=== PATIENT | female | born 1940 | race Caucasian/White ===

== ENCOUNTER 2024-04-15 14:53 | Emergency (ER) | payer MEDICARE, SELFPAY ==
[2024-04-15 14:57] VITALS: BP 123/71
[2024-04-15 15:50] VITALS: BMI 30.8
--- NOTE | 2024-04-15 16:11 | ED.GENMED ---
History of Present Illness
General
Chief Complaint: Musculo-Skeletal Complaint
Source: patient and spouse
Exam Limitations: none
Time Seen by Provider: 04/15/24 15:06
Nursing documentation reviewed up to this point in time: agreed with
Travel History
Have you had any contact with someone who has COVID-19?: No
Do you have any symptoms of coronavirus? Fever > 100 degrees, chills, cough, shortness of breath, sore throat, loss of taste or smell, muscle aches, or headache?: No
History of Present Illness
History of Present Illness:
83-year-old female with a past medical history of migraines, hypertension who presents to the emergency room for evaluation of left chest wall pain. Patient reports that yesterday afternoon she was on her hands and knees cleaning underneath the bed
and was reaching out to clean the baseboard. She says that she reached out and felt an immediate pop in the left chest wall and had significant pain. She thought that it was a muscle strain and tried to manage with Tylenol at home but pain was
quite severe overnight and into this morning and so she ultimately came to the emergency room to be assessed. She denies any shortness of breath or difficulty breathing although her pain is worse with deep inspiration. She denies any other
complaints today.
Past History
Past History
ED Past Medical History: Other (migraines) and Other (Stones, chronic pain)
ED Past Surgical History: Gynecological
Social History
Tobacco: Non-smoker
Alcohol: None
Drug: None
Personal:
Living: alone
Employment: Retired
Family History
Family History: Other (Noncontributory)
Review of Systems
Review of Systems
All Other Systems: ROS reviewed and negative except as documented in HPI and ROS
Constitutional: Denies fever
Respiratory: Denies cough or trouble breathing
Cardiac: Reports chest pain (Rib/chest wall pain); Denies palpitations
ABD/GI: Denies abdominal pain, nausea or vomiting
: Denies flank pain
Musculoskeletal: Denies neck pain or back pain
Neurological: Denies headache
Phy Exam
Physical Exam
Physical Exam:
General: Awake, alert, oriented x3; appears uncomfortable
Head: Normocephalic, atraumatic
Eyes: Conjunctiva normal
Throat: Airway intact, handling secretions
Neck: Trachea midline
Lungs: Clear to auscultation bilaterally, no wheezing, rales, rhonchi
Heart: Regular rate and rhythm, no murmurs, gallops, or rubs
Chest: Patient has no ecchymosis or crepitus on chest wall palpation; she has significant point tenderness left mid axillary line ribs 6 through 8
Back: No tenderness in the scapula or the thoracic or lumbar spine or in the posterior ribs
Abd: Soft, non distended, nontender to deep palpation
Neuro: No gross deficits
Skin: no rash
Extremities: Warm and well-perfused
Scores
Heart Failure Risk
Heart Failure Risk Score: Not Applicable
Heart Score for Chest Pain Patients
STEMI patient?: Not applicable
Withdrawal Assessment of Alcohol
Withdrawal Assessment Completed?: Not applicable
Course
Orders/Labs/Results
Orders:
Orders
04/15/24 16:06
CT Chest W/o Iv Contrast Urgent
Comment:
Reason For Exam: left chest wall tenderness, cf fx rib
04/15/24 16:07
Basic Metabolic Panel Urgent
Complete Blood Count/No Diff Urgent
Ketorolac [Toradol] 15 mg IV NOW STA
04/15/24 16:08
Lidocaine [Lidocaine 4% Patch] 1 patch TOPICAL ONCE ONE
Vital Signs
Initial and Last Documented VS:
Initial Vital Signs
Temp Pulse Resp BP Pulse Ox
36.8 C 104 16 123/71 96
04/15/24 14:57 04/15/24 14:57 04/15/24 14:57 04/15/24 14:57 04/15/24 14:57
Last Documented Vital Signs
Temp Pulse Resp BP Pulse Ox
36.8 C 104 16 123/71 96
04/15/24 14:57 04/15/24 14:57 04/15/24 14:57 04/15/24 14:57 04/15/24 15:51
MDM/Problems Addressed
Differential Diagnosis Includes:
Rib fracture, pneumothorax, chest wall strain, costochondritis
MDM/Problems Addressed:
83-year-old female presents for evaluation of left chest wall/rib pain that started suddenly while she was reaching under the bed cleaning. Pain worse with breathing and movement and not able to manage it with Tylenol at home. She is tachycardic
but has otherwise normal vitals here. Physical exam is as above�she has marked point tenderness in the mid axillary line left chest wall. Will plan to check CT chest to evaluate for fracture. Will treat pain. Will reassess after the above.
*Radiology
Radiology exam reviewed: radiology read reviewed
*Pulse Oximetry
Patient hypoxic: no
*Critical Care Note
Total Time (30-74mins, 75-104mins- exclusive of procedures): Not Applicable
Data Reviewed
Source: patient and spouse
ED Attending Note
-
Portions of this chart may have been created with voice recognition software.� Occasional wrong word or��sound alike� substitutions may have occurred due to the inherent limitations of voice recognition software.
Discharge Plan
Departure
Prescriptions:
No Action
sumatriptan succinate [Imitrex] 25 mg Tablet
25 mg PO PRN PRN (Reason: Migraine)
ibuprofen 200 mg Tablet
400 mg PO Q6H PRN (Reason: Pain)
Rx Instructions:
Patient takes 6-8 tabs daily.
budesonide-formoterol 80-4.5 mcg/actuation HFA aerosol inhaler
2 puff inhalation Q12H Qty: 10.2 0RF
acetaminophen 325 mg Tablet
650 mg PO Q4HPRN PRN (Reason: Mild Pain / Temp > 101) Qty: 30 0RF
Interventions
Interventions:
*Risk Screen - Suicide Last Done: 04/15/24 15:51
*General Assessment Last Done: 04/15/24 15:51
*Neglect/Abuse Screening Last Done: 04/15/24 15:51
ED- Fall Risk Assessment Last Done: 04/15/24 15:51
*ED COVID-19 Vaccine History Last Done: 04/15/24 14:57
ED-Musculoskeletal Assessment Last Done: 04/15/24 15:51
Discharge Date and Time
Print Language: URDU
[2024-04-15] MEDS: TORADOL 15 MG IV (16:40)
[2024-04-15 16:59] LABS: Hematocrit 35.6 % (37.0-47.0); Hemoglobin 11.4 g/dL (12.0-16.0); Mean Corpuscular Hgb 27.7 pg (27.0-31.0); Mean Corpuscular Volume 86.4 fL (81.0-99.0); Mean Platelet Volume 9.9 fL (7.4-10.4); Platelet Count 247 10^3/uL (130-400); Red Blood Cell Count 4.12 10^6/uL (4.20-5.40); Red Cell Dist. Width 14.1 % (11.5-14.5); White Blood Cell Count 8.1 10^3/uL (4.8-10.8)
[2024-04-15] MEDS: LIDOCAINE 4% PATCH 1 PATCH TOPICAL (17:02)
[2024-04-15 17:10] LABS: Blood Urea Nitrogen 21 mg/dl (7-17); Calcium 9.3 mg/dl (8.4-10.2); Carbon Dioxide 26 mmol/L (22-30); Chloride 105 mmol/L (98-107); Estimated Creatinine Clearance 41 ml/min; Glucose 109 mg/dl (70-99); Sodium 139 mmol/L (135-145)
== END 2024-04-15 19:11 | disposition home or self-care (01) ==
LOC: EMR 14:53
PROVIDERS: EMERGENCY PHYSICIAN Emergency Medicine; FAMILY PHYSICIAN Family Medicine
DX: R07.89 Other chest pain (principal); I10 Essential (primary) hypertension; G89.29 Other chronic pain
CPT/HCPCS: 99284; 96374; 71250; 80048; 85027; 93005

== ENCOUNTER → 2025-03-11 13:20 | Outpatient (REF) | payer MEDICARE, OTHER, SELFPAY | LOC: HWRAD 13:20 | PROVIDERS: ATTENDING PHYSICIAN Student in an Organized Health Care Education/Training Program | DX: G89.29 Other chronic pain (principal); M25.511 Pain in right shoulder; M25.512 Pain in left shoulder; M54.50 Low back pain, unspecified | CPT/HCPCS: 72110; 73030 ==

== ENCOUNTER 2025-03-28 12:06 | Emergency (ER) | payer MEDICARE, OTHER, SELFPAY ==
[2025-03-28 12:12] VITALS: BP 141/77
--- NOTE | 2025-03-28 14:00 | ED.MUSCINJ ---
HPI-Injury
General
Chief Complaint: Fall
Source: patient
Exam Limitations: none
Time Seen by Provider: 03/28/25 13:38
History of Present Illness-Injury
Initial Injury comments:
84-year-old female presents complaining of left chest wall pain starting 4 to 5 days ago. She slipped in her bedroom and fell onto her left side. She been using Tylenol and ibuprofen without relief. She is not anticoagulated. No shortness of
breath no abdominal pain. No other complaints
Past History
Past History
ED Past Medical History: Other (migraines) and Other (Stones, chronic pain)
ED Past Surgical History: Gynecological
Social History
Tobacco: Non-smoker
Alcohol: None
Drug: None
Personal:
Living: alone
Employment: Retired
Family History
Family History: Other (Noncontributory)
Phy Exam
Physical Exam
Physical Exam:
General: Well-appearing but uncomfortable female no acute respiratory distress
HEENT: nc/AT
Heart: RRR, no murmurs
Lungs: CTA breath sounds heard bilaterally
Ext: no cyanosis
MSK: tender to left lateral chest wall no step off or deformity
Abd: soft, nontender, no gaurding
Injury Course
Orders/Labs/Results
Orders:
Orders
03/28/25 12:16
CR Ribs-left 3 Vw W/pa Chest Urgent
Comment:
Reason For Exam: Trauma
MDM/Problems Addressed
Differential Diagnosis Includes:
Fall with left chest wall pain. Consider contusion versus fracture versus pneumothorax
X-rays left ribs were reviewed and are negative for acute finding. I suspect chest wall contusion. Lidoderm patch recommended. Will supply a limited supply of pain medicine secondary to severe pain unrelieved with [id number]'s otherwise
*Critical Care Note
Total Time (30-74mins, 75-104mins- exclusive of procedures): Not Applicable
ED Attending Note
-
Portions of this chart may have been created with voice recognition software.� Occasional wrong word or��sound alike� substitutions may have occurred due to the inherent limitations of voice recognition software.
Discharge Plan
Departure
Patient Disposition: Home (Routine Discharge)
Date of Disposition: 03/28/25
Time of Disposition: 14:06
Patient with high blood pressure during this ER visit?: No
Discharge Problem:
Chest wall contusion
Instructions: Contusion (DC)
Prescriptions:
New
hydrocodone-acetaminophen 5-325 mg tablet
1 tab PO Q8H PRN (Reason: Pain) Qty: 10 0RF
No Action
sumatriptan succinate [Imitrex] 25 mg Tablet
25 mg PO PRN PRN (Reason: Migraine)
ibuprofen 200 mg Tablet
400 mg PO Q6H PRN (Reason: Pain)
Rx Instructions:
Patient takes 6-8 tabs daily.
budesonide-formoterol 80-4.5 mcg/actuation HFA aerosol inhaler
2 puff inhalation Q12H Qty: 10.2 0RF
acetaminophen 325 mg Tablet
650 mg PO Q4HPRN PRN (Reason: Mild Pain / Temp > 101) Qty: 30 0RF
lidocaine 5 % adhesive patch,medicated
1 patch topical DAILY Qty: 30 0RF
oxycodone 5 mg tablet
5 mg PO BID PRN (Reason: Pain) Qty: 10 0RF
Referrals:
Mazin Kumari DO [Family Provider] -
Activity Restrictions/Additional Instructions:
You may apply [id number] Lidoderm patches to the area to help with pain. Continue with ibuprofen. Take prescribed medicine as needed for severe pain. Return if needed otherwise follow-up with family doctor
Interventions
Interventions:
*Risk Screen - Suicide Last Done: 03/28/25 13:22
*General Assessment Last Done: 03/28/25 13:22
*Neglect/Abuse Screening Last Done: 03/28/25 13:22
*ED- Fall Risk Assessment Last Done: 03/28/25 13:22
*ED COVID-19 Vaccine History Last Done: 03/28/25 13:22
ED-Musculoskeletal Assessment Last Done: 03/28/25 13:22
ED- Neurological Assessment Last Done: 03/28/25 13:22
ED-Skin Assessment Last Done: 03/28/25 13:22
Discharge Date and Time
Print Language: [id number]
== END 2025-03-28 14:18 | disposition home or self-care (01) ==
LOC: EMR 12:06
PROVIDERS: EMERGENCY PHYSICIAN Emergency Medicine; FAMILY PHYSICIAN Student in an Organized Health Care Education/Training Program
DX: S20.219A Contusion of unspecified front wall of thorax, initial encounter (principal); W01.0XXA Fall on same level from slipping, tripping and stumbling without subsequent striking against object, initial encounter
CPT/HCPCS: 99283; 71101